=== PATIENT | male | born 1955 | race Caucasian/White ===

== ENCOUNTER → 2017-11-10 | Outpatient (CLI) | payer OTHER ==
--- NOTE | 2017-11-11 16:04 | RADIOLOGY REPORT (SQ) ---
EXAM DESCRIPTION: MRI LT LOWER JOINT WITHOUT COMPLETED DATE/TIME: 11/10/2017 8:34 pm REASON FOR STUDY: PAIN IN LEFT KNEE M25.562 M25.562 PAIN IN LEFT KNEE COMPARISON: None. TECHNIQUE: Leftknee images acquired and stored on PACS. Multiplanar images include fat sensitive se quences as T1, water sensitive sequences as FST2 or STIR, cartilage sensitive sequences as FSPD, and gradient echo sequences. LIMITATIONS: None. FINDINGS: JOINT AND BURSAE: Trace joint fluid. No large effusion. No loose bodies appreciated. BONE CORTEX AND MARROW: No alteration of signal to suggest marrow replacement. No worrisome bone lesi ons. No occult fracture. ACL: Hyperintensity throughout the ACL with intact major fiber bundles. Probably degenerative/ chron ic given lack of any recent injury history. PCL: Intact. MCL: Intact. LCL: Intact. MEDIAL MENISCUS: Diminutive posterior root. Extruded appearance of the meniscus. LATERAL MENISCUS: No tears. No abnormal signal. MEDIAL COMPARTMENT: Irregular chondral thinning. Some of this looks full-thickness in the femoral co ndyles. No reactive bone cysts, however. Minimal osteophyte formation. LATERAL COMPARTMENT: Cartilage preserved. No bone bruises or reactive marrow edema. No osteophytes. PATELLA: Normal location with generally intact cartilage. EXTENSOR MECHANISM: Intact. Quadriceps and patella tendons normal. SOFT TISSUES: Multiloculated appearing presumed cystic mass extending cranially along the posterior t high deep soft tissues. This probably communicates with the joint but the septated multiloculated ap pearance is not typical for a popliteal cyst. Limited repeat study with pre and post contrast axial sequences to exclude any solid enhancement may be warranted. OTHER: No other significant finding. IMPRESSION: 1. Deficient posterior horn medial meniscus with extruded appearance. 2. 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 3. Medial compartment chondral th inning. 4. Loculated probable popliteal cyst with superior extension. Limited repeat study to incl ude post IV gadolinium imaging may be warranted. TECHNICAL DOCUMENTATION: JOB ID: [id number] [employer]- All Rights Reserved Reading location - IP/workstation name: [email or web address]
== END ==
LOC: RAD 19:29
PROVIDERS: ATTEND Orthopaedic Surgery
DX: M25.562 Pain in left knee (principal)